=== PATIENT | female | born 1935 | race Caucasian/White ===

== ENCOUNTER 2016-10-30 16:40 | Observation (INO) ==
--- NOTE | 2016-10-30 17:49 | Emergency Department Note ---
Disposition Clinical Impression: Frequent falls Scapular fracture Qualifiers: Encounter type: initial encounter Scapula location: other part of scapula Fracture type: closed Laterality: right Qualified Code(s): S42.191A - Fracture of other part of scapula, right shoulder, initial encounter for closed fracture UTI (urinary tract infection) Qualifiers: Urinary tract infection type: site unspecified Hematuria presence: without hematuria Qualified Code(s): N39.0 - Urinary tract infection, site not specified Disposition: Admitted As Inpatient Condition: Good General Adult HPI - General Chief complaint: ED Fall Stated complaint: Son wants pt evaluated for ECF placement, s/p fall Source: patient, family Mode of arrival: private vehicle Limitations: no limitations Nursing Notes Reviewed: Yes Vital Signs Reviewed: Yes - History of Present Illness HPI Narrative: Patient presents to the ED with complaint of multiple falls recently, generalized weakness and a desire for ECF placement. Patient's son states that she tripped and fell on October 23. She was seen on the at urgent care and diagnosed with a right scapula fracture and placed in a sling and swath. Since then she has continued to try to ambulate with her cane but has been having increased difficulty. On October 27 she fell out of bed and has since been complaining of persistent right scapular pain. She was referred by urgent care to orthopedics for follow-up but has not yet been seen. She has a history of dementia and seizure disorder but has not had any recent seizures. She alternates living with her son and her daughter for 30 days at a time. Son states she is progressively needing more assistance that he and his sister cannot provide to ensure the patient's safety. Patient agrees that she needs more assistance as well. Pain Scale: 9 - Related Data Home Medications Medication Instructions Recorded Confirmed Alendronate Sodium [Fosamax] 70 mg PO QWEEK 10/26/16 10/30/16 Aspirin [Lo-Dose Aspirin EC] 81 mg PO DAILY 10/26/16 10/30/16 Cholecalciferol (Vitamin D3) 5,000 unit PO DAILY 10/26/16 10/30/16 [Vitamin D] Duoxetine 60 mg PO HS 10/26/16 10/30/16 Ferrous Gluconate 324 mg PO DAILY 10/26/16 10/30/16 Gabapentin [Neurontin] 300 mg PO BID 10/26/16 10/30/16 Glucosamine HCl/Chondr Negron A Na 1 tab PO BID 10/26/16 10/30/16 [[facility] Glucosamine-Chondr Tablet] Memantine [Namenda] 10 mg PO BID 10/26/16 10/30/16 Oxybutynin [Ditropan] 5 mg PO DAILY 10/26/16 10/30/16 LevETIRAcetam [Keppra Xr] 500 mg PO BID 10/30/16 10/30/16 Previous Rx's Medication Instructions Recorded HYDROcodone/Acet 5/325 mg [[place] 1 tab PO Q6H PRN #8 tab 10/26/16 5-325 mg] Allergies Allergy/AdvReac Type Severity Reaction Status Date / Time No Known Allergies Allergy Verified 10/26/16 18:03 Constitutional: Denies: fever, chills, weakness, weight change Eyes: Denies: eye pain, eye discharge, vision change ENT ED: Denies: ear pain, throat pain, dental pain, hearing loss, epistaxis, congestion, dysphagia Cardiovascular: Denies: chest pain, palpitations, dyspnea on exertion, edema, syncope Respiratory: Denies: cough, dyspnea, wheezes, hemoptysis, stridor Gastrointestinal: Denies: abdominal pain, nausea, vomiting, diarrhea, constipation, hematemesis, melena, hematochezia Genitourinary: Denies: dysuria, frequency, hematuria, discharge Musculoskeletal: Reports: as per HPI. Denies: back pain, neck pain, arthralgia , myalgia Integumentary: Denies: rash, abrasion, lesions Neurological: Denies: headache, weakness, numbness, paresthesias, confusion, abnormal gait, vertigo Psychiatric: Denies: anxiety, depression, suicidal thoughts, homicidal thoughts , auditory hallucinations, visual hallucinations Endocrine: Denies: fatigue Hematological/Lymphatic: Denies: easy bleeding, easy bruising Allergic/Immunologic: Denies: facial swelling, urticaria Past Medical History - Past Medical History Medical history: Reports: dementia, other Surgical history: Reports: orthopedic, other Psychiatric history: Reports: depression - Social History Smoking Status: Never smoker Smokeless Tobacco Status: No Alcohol use: Reports: none Drug use: Reports: none Physical Exam - General Limitations: no limitations General appearance: alert, in no apparent distress - Head Head exam: atraumatic, normocephalic, normal inspection - Eye Eye exam: Present: normal appearance, PERRL, EOMI - ENT ENT exam: normal exam, normal oropharynx, mucous membranes moist - Neck Neck exam: Present: normal inspection, full ROM, trachea midline - Chest Chest inspection: Present: normal inspection, symmetric chest wall rise - Respiratory Respiratory exam: Present: normal lung sounds bilaterally - Cardiovascular Cardiovascular exam: Present: regular rate, normal rhythm, normal heart sounds - Abdominal Exam Abdominal exam: Present: soft, Non-Tender. Absent: tenderness, distention, guarding, rebound, rigidity - Extremities Exam Extremities exam: Present: normal inspection, full ROM. Absent: tenderness, pedal edema - Back Exam Back exam: Present: normal inspection. Absent: tenderness, CVA tenderness (R), CVA tenderness (L) - Neurological Exam Neurological exam: Present: alert - Expanded Neurological Exam Patient oriented to: Present: person, place - Psychiatric Psychiatric exam: Present: normal affect, normal mood - Skin Skin exam: Present: warm, dry, intact, normal color Course Course Narrative: Patient presents to the ED with frequent falls, generalized weakness and recent scapular fracture. Patient family were seen by social media specialist while awaiting evaluation in the ED discussed possibilities of ECF placement. Labs were performed which revealed a UTI. Scapular x-ray does show a slightly displaced fracture. Patient was medicated for pain. Given patient's declining condition and history of dementia with frequent falls I that she would benefit from admission and further evaluation to determine what services she requires. Spoke to the hospitalist on-call, Dr. Dickinson, who has accepted the patient. Patient is hemodynamically stable currently. Laboratory studies are unremarkable other than UTI and thrombocytopenia which is chronic. Vital Signs Temperature 98.3 F 10/30/16 16:42 Pulse Rate 78 10/30/16 16:42 Respiratory Rate 24 10/30/16 16:42 Blood Pressure 101/71 10/30/16 16:42 O2 Sat by Pulse Oximetry 94 10/30/16 16:42 Temperature 97.7 F 10/31/16 04:18 Pulse Rate 74 10/31/16 04:18 Respiratory Rate 18 10/31/16 04:18 Blood Pressure 110/71 10/31/16 04:18 O2 Sat by Pulse Oximetry 92 10/31/16 04:18 Oxygen Delivery Oxygen Delivery Room Air Medical Decision Making - Medical Records Medical records reviewed: Yes I reviewed the patient's medical records. - Lab Data Lab results reviewed: Yes I reviewed the patient's lab results. Result diagrams: 10/30/16 18:18 10/30/16 18:18 Lab Results 10/30/16 10/30/16 10/30/16 Range/Units 18:18 18:18 19:08 WBC 6.4 (4.3-11.1) K/mcL RBC 3.96 (3.82-4.97) M/mcL Hgb 12.8 (11.5-15.4) g/dL Hct 38.1 (35.3-44.9) % MCV 96.2 (83.0-100.0) fL MCH 32.3 (28.0-33.3) pg MCHC 33.6 (31.6-35.5) g/dL RDW 12.8 (11.5-14.5) % Plt Count 129 L (140-400) K/mcL MPV 11.2 (9.4-12.4) fL Seg Neutrophils % 34.0 % Band Neutrophils % 2.0 (0-4) % Lymphocytes % 58.0 % Monocytes % 2.0 % Eosinophils % 4.0 % Neutrophils # 2.3 (1.6-8.9) K/mcL Lymphocytes # 3.7 (0.6-4.6) K/mcL Monocytes # 0.1 (0.0-1.3) K/mcL Eosinophils # 0.3 (0.0-0.6) K/mcL Reactive Lymphocytes Present A (Not Present) Platelet Estimate Slight Decrease L (Normal) Sodium 142 (136-145) mEq/L Potassium 3.7 (3.5-4.5) mEq/L Chloride 107 (98-109) mEq/L Carbon Dioxide 19 (19-29) mEq/L BUN 20 (7-20) mg/dL Creatinine 0.85 (0.57-1.11) mg/dL Est GFR ( Amer) > 60 (> 60) Est GFR (Non-Af Amer) > 60 (> 60) BUN/Creatinine Ratio 24 (6-26) Glucose 108 H (70-99) mg/dL Calculated Osmolality 297 (280-300) Calcium 8.8 (8.6-10.8) mg/dL Urine Color Yellow (Yellow) Urine Clarity Slightly Cloudy A (Clear) Urine pH 5.5 (5.0-8.0) pH Units Ur Specific [place] 1.025 (1.010-1.025) Urine Protein 100 H (Neg-Trace) mg/dL Urine Glucose (UA) Normal (Normal) mg/dL Urine Ketones Trace H (Negative) mg/dL Urine Blood Negative (Negative) Urine Nitrite Negative (Negative) Urine Bilirubin Negative (Negative) Urine Urobilinogen Normal (Normal) mg/dL Ur Leukocyte Esterase Trace H (Negative) Urine Microscopic RBC 0-3 (0-3) per hpf Urine Microscopic WBC 5-15 H (0-3) per hpf Ur Squamous Epith Cells Many H (None-Few) per lpf Urine Bacteria Moderate H (None-Few) per hpf Hyaline Casts Few (None-Few) per lpf Granular Casts Few H (None Seen) per lpf Urine Mucus Moderate H (Few) Ur Culture Indicated? YES A (NO) - Radiology Data Radiology results reviewed: Yes I reviewed the patient's radiology results. ITS Impressions Scapula X-Ray 10/30/16 18:05 IMPRESSION: 1. Acute traumatic displaced superior scapular fracture. D/ / Eric Riggs MD / Eric Riggs MD Interpreting Provider: Eric Riggs MD
[2016-10-30 18:24] LABS: Eosinophils # 0.3 K/mcL (0.0-0.6); Hematocrit 38.1 % (35.3-44.9); Hemoglobin 12.8 g/dL (11.5-15.4); Mean Corpuscular HGB Conc 33.6 g/dL (31.6-35.5); Mean Corpuscular Hemoglobin 32.3 pg (28.0-33.3); Mean Corpuscular Volume 96.2 fL (83.0-100.0); Mean Platelet Volume 11.2 fL (9.4-12.4); Platelet Count 129 K/mcL (140-400); Red Blood Count 3.96 M/mcL (3.82-4.97); Red Cell Distribution Width 12.8 % (11.5-14.5)
[2016-10-30 18:44] LABS: Lymphocytes # 3.7 K/mcL (0.6-4.6); Monocytes # 0.1 K/mcL (0.0-1.3); Neutrophils # 2.3 K/mcL (1.6-8.9)
[2016-10-30 18:56] LABS: Reactive Lymphocytes Present (Not Present)
[2016-10-30 18:57] LABS: Platelet Estimate Slight Decrease (Normal)
[2016-10-30 19:09] LABS: BUN/Creatinine Ratio 24 (6-26); Blood Urea Nitrogen 20 mg/dL (7-20); Calcium 8.8 mg/dL (8.6-10.8); Carbon Dioxide 19 mEq/L (19-29); Chloride 107 mEq/L (98-109); Glucose 108 mg/dL (70-99); Osmolality,Calculated 297 (280-300); Potassium 3.7 mEq/L (3.5-4.5); Sodium 142 mEq/L (136-145); eGFR For African Americans > 60 (> 60); eGFR For Non-African Americans > 60 (> 60)
[2016-10-30 19:34] LABS: Bilirubin,Urine Negative (Negative); Blood,Urine Negative (Negative); Clarity,Urine Slightly Cloudy (Clear); Color,Urine Yellow (Yellow); Glucose,Urine (UA) Normal (Normal); Ketones,Urine Trace mg/dL (Negative); Leukocyte Esterase,Urine Trace (Negative); Nitrite,Urine Negative (Negative); PH,Urine 5.5 pH Units (5.0-8.0); Protein,Urine 100 mg/dL (Neg-Trace); Specific Gravity,Urine 1.025 (1.010-1.025); Urobilinogen,Urine Normal (Normal)
[2016-10-30 19:42] LABS: Granular Casts,Urine Few per lpf (None Seen); Mucus,Urine Moderate (Few); Squamous Epithelial Cell,Urine Many per lpf (None-Few)
[2016-10-30 19:43] LABS: Bacteria,Urine Moderate per hpf (None-Few); Hyaline Casts,Urine Few per lpf (None-Few)
[2016-10-30 19:44] LABS: RBC,Urine 0-3 per hpf (0-3)
[2016-10-30] MEDS ORDERED: Nitrofurantoin (BID) 100 MG CAPSULE PO STA (19:48)
[2016-10-30] MEDS ORDERED: Naloxone 0.4 MG/ML INJ IVP PRN ×2 (20:27→21:17)
[2016-10-30] MEDS ORDERED: Acetaminophen 325 MG TABLET PO PRN (20:27)
[2016-10-30] MEDS: *HR* HYDROcodone/Acet 5/325 mg TABLET PO PRN (22:52)
[2016-10-30] MEDS: levETIRAcetam 250 MG TABLET PO SCH (22:54)
[2016-10-30] MEDS: [UNRECOGNIZED DRUG - OTHER] PO SCH (22:57)
[2016-10-30] MEDS: Gabapentin 300 MG CAPSULE PO SCH (22:59)
[2016-10-31] MEDS: *HR* HYDROcodone/Acet 5/325 mg TABLET PO PRN (05:01)
[2016-10-31] MEDS: [UNRECOGNIZED DRUG - OTHER] PO SCH (08:08)
[2016-10-31] MEDS: Gabapentin 300 MG CAPSULE PO SCH ×2 (08:54→21:12)
[2016-10-31] MEDS: Aspirin Enteric Coated 81 MG Tablet PO SCH (08:54)
[2016-10-31] MEDS: levETIRAcetam 250 MG TABLET PO SCH ×3 (08:54→21:10)
[2016-10-31] MEDS: Cholecalciferol (D-3) 1,000 UNIT TABLET PO SCH (08:54)
--- NOTE | 2016-10-31 12:07 | Internal Med History&Physical ---
Date of Encounter: 10/31/16 Time of Encounter: 11:30 Assessment and Plan (1) Scapular fracture Current visit: Yes Status: Acute A shoulder CT will be done as per recommendation of the orthopedist. She will have a follow-up appointment this afternoon with [facility] orthopedists. Qualifiers: Encounter type: initial encounter Scapula location: other part of scapula Fracture type: closed Laterality: right Qualified Code(s): S42.191A - Fracture of other part of scapula, right shoulder, initial encounter for closed fracture (2) Dementia Current visit: Yes Status: Chronic We will do a head CT and lab work for further workup. Qualifiers: Dementia type: unspecified type Dementia behavioral disturbance: without behavioral disturbance Qualified Code(s): F03.90 - Unspecified dementia without behavioral disturbance (3) Gout Current visit: Yes Status: Chronic We will order uric acid and other labs in a.m. Qualifiers: Gout site: unspecified site Gout etiology: unspecified cause Chronicity: chronic Presence of tophus: without tophus Qualified Code(s): M1A.9XX0 - Chronic gout, unspecified, without tophus (tophi) (4) Seizures Current visit: Yes Status: Chronic Type unknown. We will continue Keppra and Neurontin at present doses. We will do a head CT as per above (5) Frequent falls Current visit: Yes Status: Acute PT and OT evaluations have been ordered. Internal Medicine - H&P: HPI Chief complaint: Confusion Admitted From: Home Plans for Post Hospital Care: Home History of present illness: Ms. Miller is a 80 year old female who was brought to the emergency room by family after she had sustained several falls recently. She was seen at [place] urgent care 10/26/2016 after a fall and x-ray showed right scapular fracture. She was placed in an immobilizer sling and told to follow-up with an orthopedist but has not had a follow-up visit yet. She was evaluated in emergency room and found to have slightly more displacement of the right scapular fracture. She was admitted to [facility] floor for ongoing care needs. She is a fair to poor historian. She has a diagnosis of dementia and she admits her memory is impaired. She does not know her age, location, or recent for coming to the hospital. Past Med Surg Social Fam HX - Past Medical History Medical history: dementia, other Psychiatric history: depression - Past Surgical History Surgical History: orthopedic, other - Social History Smoking Status: Never smoker Smokeless Tobacco Status: No Alcohol use: none Drug use: none - Family History Father Living Status: Hx Family Cancer: Yes (MELANOMA) Internal Medicine - H&P: Meds Alendronate Sodium [Fosamax] 70 mg PO QWEEK 10/26/16 [History] Aspirin [Lo-Dose Aspirin EC] 81 mg PO DAILY 10/26/16 [History] Cholecalciferol (Vitamin D3) [Vitamin D] 5,000 unit PO DAILY 10/26/16 [History] Duoxetine 60 mg PO HS 10/26/16 [History] Ferrous Gluconate 324 mg PO DAILY 10/26/16 [History] Gabapentin [Neurontin] 300 mg PO BID 10/26/16 [History] Glucosamine HCl/Chondr Negron A Na [[facility]vs Glucosamine-Chondr Tablet] 1 tab PO BID [History] HYDROcodone/Acet 5/325 mg [[place] 5-325 mg] 1 tab PO Q6H PRN #8 tab 10/26/16 [Rx] Memantine [Namenda] 10 mg PO BID 10/26/16 [History] Oxybutynin [Ditropan] 5 mg PO DAILY 10/26/16 [History] LevETIRAcetam [Keppra Xr] 500 mg PO BID 10/30/16 [History] Allergies No Known Allergies Allergy (Verified 10/26/16 18:03) All Systems PM: A 10-system review of systems was performed and is negative for pertinent findings except as documented above in the HPI. Review of systems: Gen.: She states her weight has been stable past few months Cardiovascular: She denies NM hypertension heart failure angina DVT or pulmonary embolus Respiratory: She states she smoked from age [age] up to 2/3 pack daily. She states she does not use home oxygen and has not been told she has chronic lung disease. GI: She denies disorders of her liver gallbladder or exocrine pancreas : She denies hematuria dysuria or kidney stones Neurologic: She has a diagnosis of seizure disorder but does not know details. She states she had a light stroke 6 months ago but does not know of any sequelae. She admits to memory loss and has a diagnosis of dementia and is on Namenda. She states she had a near syncopal episode several months ago but denies any recurrence. 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 She had recent scapular fracture as per history of present illness. She denies other bone joint or muscle disorders. - Constitutional Vitals: Temp Pulse Resp BP Pulse Ox 97.9 F 101 20 103/60 95 10/31/16 10:58 10/31/16 10:58 10/31/16 10:58 10/31/16 10:58 10/31/16 10:58 Exam: Gen.: She is a well-developed well-nourished female sitting in a chair who appears in no distress at rest HEENT: Head is atraumatic and normocephalic. Eyes: EOMI. There is no scleral icterus. Mouth: Mucosa is moist. Neck: Supple and nontender. There is no thyromegaly or adenopathy noted. Heart: Regular without murmurs gallops or ectopics Lungs: No wheezes or crackles are heard. Abdomen: Soft and nontender. Exam is limited because she is in the seated position. Extremities: There is no cyanosis edema or clubbing noted. She has DJD changes her hands. 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 Neurologic: Mental status: She is talkative but a fair historian at best. Cranial nerves: Smile is symmetric. Forehead wrinkles bilaterally. Tongue protrudes midline. EOMI. Motor: There is no pronator drift. There is no cogwheeling or rigidity. Cerebellar: Finger to nose is intact bilaterally. Skin: Warm and dry Internal Med - H&P Results - Labs CBC & Chem 7: 10/30/16 18:18 10/30/16 18:18 - VTE Reasons for not Prescribing Prophylaxis: Treatment not Indicated - Low risk for VTE
[2016-10-31] MEDS: Acetaminophen 325 MG TABLET PO PRN (21:12)
[2016-11-01] MEDS: [UNRECOGNIZED DRUG - OTHER] PO SCH ×3 (05:35→21:01)
[2016-11-01 06:22] LABS: Alanine Aminotransferase 34 Units/L (0-55); Albumin 3.1 g/dL (3.5-5.0); Alkaline Phosphatase 62 Units/L (38-126); Aspartate Amino Transferase 36 Units/L (5-34); BUN/Creatinine Ratio 21 (6-26); Bilirubin,Total 0.5 mg/dL (0.2-1.2); Blood Urea Nitrogen 16 mg/dL (7-20); Calcium 8.5 mg/dL (8.6-10.8); Carbon Dioxide 26 mEq/L (19-29); Chloride 107 mEq/L (98-109); Glucose 89 mg/dL (70-99); Osmolality,Calculated 295 (280-300); Potassium 3.8 mEq/L (3.5-4.5); Sodium 142 mEq/L (136-145); Total Protein 6.1 g/dL (6.0-8.3); Uric Acid 6.4 mg/dL (2.6-6.0); eGFR For African Americans > 60 (> 60); eGFR For Non-African Americans > 60 (> 60)
[2016-11-01 06:44] LABS: Thyroid Stimulating Hormone 0.983 mcIU/mL (0.350-4.840)
[2016-11-01] MEDS: Aspirin Enteric Coated 81 MG Tablet PO SCH (07:29)
[2016-11-01] MEDS: Cholecalciferol (D-3) 1,000 UNIT TABLET PO SCH (07:29)
[2016-11-01] MEDS: levETIRAcetam 250 MG TABLET PO SCH ×2 (07:30→21:00)
[2016-11-01] MEDS: Gabapentin 300 MG CAPSULE PO SCH ×2 (07:30→21:01)
[2016-11-01] MEDS: *HR* HYDROcodone/Acet 5/325 mg TABLET PO PRN (15:31)
--- NOTE | 2016-11-01 17:54 | Internal Med Progress Note ---
Date of Encounter: 11/01/16 Time of Encounter: 17:45 - Assessment and plan (1) Scapular fracture Current Visit: Yes Status: Acute Assessment and plan: November 01. As per orthopedists. Qualifiers: Encounter type: initial encounter Scapula location: other part of scapula Fracture type: closed Laterality: right Qualified Code(s): S42.191A - Fracture of other part of scapula, right shoulder, initial encounter for closed fracture (2) Dementia Current Visit: Yes Status: Chronic Assessment and plan: November 01. Head CT showed chronic small vessel ischemic changes as well as multiple lacunar infarcts. B12 and TSH levels were normal. Qualifiers: Dementia type: unspecified type Dementia behavioral disturbance: without behavioral disturbance Qualified Code(s): F03.90 - Unspecified dementia without behavioral disturbance (3) Gout Current Visit: Yes Status: Chronic Assessment and plan: November 01. Uric acid level returned slightly elevated at 6.4. I will start low- dose allopurinol. Qualifiers: Gout site: unspecified site Gout etiology: unspecified cause Chronicity: chronic Presence of tophus: without tophus Qualified Code(s): M1A.9XX0 - Chronic gout, unspecified, without tophus (tophi) (4) Seizures Current Visit: Yes Status: Chronic Assessment and plan: November 01. Continue Keppra and Neurontin. (5) Frequent falls Current Visit: Yes Status: Acute Assessment and plan: November 01. Continue therapy interventions. Anticipate discharge to [facility] November 03 - Subjective Interval history: November 01. She has no new complaints. She was seen by orthopedist yesterday and received a new right arm immobilizer sling. - Constitutional Vitals: Temp Pulse Resp BP Pulse Ox 98.7 F 76 16 96/69 96 11/01/16 14:51 11/01/16 14:51 11/01/16 14:51 11/01/16 14:51 11/01/16 14:51 Exam: She is resting comfortably in bed and appears in no acute distress. Her affect is bright and cheerful. I reviewed her medications and lab results. Internal Medicine: Result - Labs CBC & Chem 7: 10/30/16 18:18 11/01/16 05:28 Labs: BMP 11/01/16 05:28 Sodium 142 Potassium 3.8 Chloride 107 Carbon Dioxide 26 BUN 16 Creatinine 0.75 Glucose 89 Calcium 8.5 L Liver Function 11/01/16 Range/Units 05:28 Total Bilirubin 0.5 (0.2-1.2) mg/dL AST 36 H (5-34) Units/L ALT 34 (0-55) Units/L Alkaline Phosphatase 62 (38-126) Units/L Albumin 3.1 L (3.5-5.0) g/dL - Impressions Impressions Head CT 10/31/16 12:15 IMPRESSION: No acute intracranial abnormality. Generalized cerebral atrophy. Bilateral lacunar infarcts and deep white matter infarcts. Remote infarct in the right occipital lobe. Small vessel white matter ischemic changes. D/ / 10/31/2016 14:22:37 Fran Raymond MD / lizbeth Interpreting Provider: Fran Raymond MD Shoulder CT 10/31/16 12:15 IMPRESSION: Acute traumatic mildly displaced fracture of the scapula at the base of the acromion process. Associated grade 2 AC joint separation with possible small cortical avulsion fracture fragment measuring 3 mm within the AC joint. Reversed right total shoulder arthroplasty with normal alignment. No evidence of loosening of the hardware. D/ / 10/31/2016 14:30:38 Ajit Ruiz MD / lizbeth Interpreting Provider: Ajit Ruiz MD - VTE Reasons for not Prescribing Prophylaxis: Treatment not Indicated - Low risk for VTE Consult Discharge Plan - Plan Referrals: Zaida Chávez [Other] - 1 week
[2016-11-02] MEDS: Cholecalciferol (D-3) 1,000 UNIT TABLET PO SCH (08:11)
[2016-11-02] MEDS: Gabapentin 300 MG CAPSULE PO SCH ×2 (08:11→19:32)
[2016-11-02] MEDS: Aspirin Enteric Coated 81 MG Tablet PO SCH (08:12)
[2016-11-02] MEDS: levETIRAcetam 250 MG TABLET PO SCH ×2 (08:12→19:32)
[2016-11-02] MEDS: *HR* HYDROcodone/Acet 5/325 mg TABLET PO PRN ×2 (08:16→22:57)
[2016-11-02] MEDS: [UNRECOGNIZED DRUG - OTHER] PO SCH ×2 (10:09→19:34)
--- NOTE | 2016-11-02 12:34 | Internal Med Progress Note ---
Date of Encounter: 11/02/16 Time of Encounter: 12:20 - Assessment and plan (1) Scapular fracture Current Visit: Yes Status: Acute Assessment and plan: November 01. As per orthopedists. Qualifiers: Encounter type: initial encounter Scapula location: other part of scapula Fracture type: closed Laterality: right Qualified Code(s): S42.191A - Fracture of other part of scapula, right shoulder, initial encounter for closed fracture (2) Dementia Current Visit: Yes Status: Chronic Assessment and plan: November 01. Head CT showed chronic small vessel ischemic changes as well as multiple lacunar infarcts. B12 and TSH levels were normal. Qualifiers: Dementia type: unspecified type Dementia behavioral disturbance: without behavioral disturbance Qualified Code(s): F03.90 - Unspecified dementia without behavioral disturbance (3) Gout Current Visit: Yes Status: Chronic Assessment and plan: November 01. Uric acid level returned slightly elevated at 6.4. I will start low- dose allopurinol. November 02. Continue allopurinol. Qualifiers: Gout site: unspecified site Gout etiology: unspecified cause Chronicity: chronic Presence of tophus: without tophus Qualified Code(s): M1A.9XX0 - Chronic gout, unspecified, without tophus (tophi) (4) Seizures Current Visit: Yes Status: Chronic Assessment and plan: November 01. Continue Keppra and Neurontin. (5) Frequent falls Current Visit: Yes Status: Acute Assessment and plan: November 01. Continue therapy interventions. Anticipate discharge to [facility] November 03 - Subjective Interval history: November 01. She has no new complaints. She was seen by orthopedist yesterday and received a new right arm immobilizer sling. November 02. She has no new complaints. - Constitutional Vitals: Temp Pulse Resp BP Pulse Ox 98.8 F 79 16 101/61 92 11/02/16 11:37 11/02/16 11:37 11/02/16 11:37 11/02/16 11:37 11/02/16 11:37 Exam: She is resting comfortably in bed. Affect is bright and cheerful. I reviewed her medications and lab results. Internal Medicine: Result - Labs CBC & Chem 7: 10/30/16 18:18 11/01/16 05:28 - VTE Reasons for not Prescribing Prophylaxis: Treatment not Indicated - Low risk for VTE Consult Discharge Plan - Plan Referrals: Zaida Chávez [Other] - 1 week
[2016-11-03] MEDS: Acetaminophen 325 MG TABLET PO PRN ×2 (01:08→07:54)
[2016-11-03] MEDS: Gabapentin 300 MG CAPSULE PO SCH (07:54)
[2016-11-03] MEDS: Cholecalciferol (D-3) 1,000 UNIT TABLET PO SCH (07:54)
[2016-11-03] MEDS: Aspirin Enteric Coated 81 MG Tablet PO SCH (07:54)
[2016-11-03] MEDS: levETIRAcetam 250 MG TABLET PO SCH (07:55)
--- NOTE | 2016-11-03 12:38 | Discharge Summary ---
Date of Encounter: 11/03/16 Time of Encounter: 12:30 - Discharge Diagnosis (1) Scapular fracture Priority: Primary Status: Acute Qualifiers: Encounter type: initial encounter Scapula location: other part of scapula Fracture type: closed Laterality: right Qualified Code(s): S42.191A - Fracture of other part of scapula, right shoulder, initial encounter for closed fracture (2) Dementia Priority: Secondary Status: Chronic Qualifiers: Dementia type: unspecified type Dementia behavioral disturbance: without behavioral disturbance Qualified Code(s): F03.90 - Unspecified dementia without behavioral disturbance (3) Gout Priority: Secondary Status: Chronic Qualifiers: Gout site: unspecified site Gout etiology: unspecified cause Chronicity: chronic Presence of tophus: without tophus Qualified Code(s): M1A.9XX0 - Chronic gout, unspecified, without tophus (tophi) (4) Seizures Priority: Secondary Status: Chronic (5) Frequent falls Priority: Secondary Status: Acute - Discharge Medications Prescriptions: HYDROcodone/Acet 5/325 mg [Monroe 5-325 mg] 1 tab PO Q6H PRN #20 tablet PRN Reason: Pain Home Medications: Alendronate Sodium [Fosamax] 70 mg PO QWEEK 10/26/16 [History] Aspirin [Lo-Dose Aspirin EC] 81 mg PO DAILY 10/26/16 [History] Duoxetine 60 mg PO HS 10/26/16 [History] Gabapentin [Neurontin] 300 mg PO BID 10/26/16 [History] Glucosamine HCl/Chondr Negron A Na [[facility] Glucosamine-Chondr Tablet] 1 tab PO BID [History] Memantine [Namenda] 10 mg PO BID 10/26/16 [History] Oxybutynin [Ditropan] 5 mg PO DAILY 10/26/16 [History] LevETIRAcetam [Keppra Xr] 500 mg PO BID 10/30/16 [History] Allopurinol [Zyloprim 100 MG] 100 mg PO DAILY tablet 11/03/16 [Rx] Cholecalciferol (D-3) [Vitamin D] 1,000 unit PO DAILY tablet 11/03/16 [Rx] HYDROcodone/Acet 5/325 mg [Monroe 5-325 mg] 1 tab PO Q6H PRN #20 tablet 11/03/16 [Rx] Allergies/Adverse Reactions: Allergies No Known Allergies Allergy (Verified 10/26/16 18:03) Procedures/tests Complete & Pending: Procedures Performed prior 72 hours Category Date Time Status CT head/brain wo con [CT] Stat Cat Scan 10/31/16 12:[address] shoulder RT wo con [CT] Stat Cat Scan 10/31/16 12:15 Completed Date of admission: 10/30/16 20:39 Primary care physician: Zaida Chávez Consults: 10/30/16 21:35 Consult to Occupational Therapy [CONS] Routine Comment: Evaluate, develop and implement POC Reason for Consult: Eval. Develop and Implement P.O.C if P.O.C. is needed Consult to Physical Therapy [CONS] Routine Comment: Evaluate, develop and implement POC Reason for Consult: Eval. Develop and Implement P.O.C if P.O.C. is needed Consult to [facility] [CONS] Routine Reason for SW Consult: D/C planning 10/30/16 22:37 Consult to Pastoral Services [CONS] Routine Comment: - Patient Status Disposition: Transfer SNF Condition: Good Functional capacity at discharge: uses cane/walker Overall status at discharge: patient is progressing back to baseline - Discharge Instructions Follow Up With: Zaida Chávez [Other] - 1 week - Diet and Activity Activity: as per physical therapy Diet: advance to your usual diet Hospital course: Ms. Miller is a 81 year old female who was brought to the emergency room by family after she had sustained several falls recently. She was seen at [facility] 10/26/2016 after a fall and x-ray showed right scapular fracture. She was placed in an immobilizer sling and told to follow-up with an orthopedist but has not had a follow-up visit yet. She was evaluated in emergency room and found to have slightly more displacement of the right scapular fracture. She was admitted to [facility] for ongoing care needs. The initial orders written by the emergency room physician. I saw her on October 31 and performed the history and physical. She was referred to an orthopedist for further evaluation of the right scapular fracture. A shoulder CT was done. She was treated nonoperatively and placed in an immobilizer sling by the orthopedist. She was given adequate analgesics. She will follow up with orthopedist as directed. Dementia workup showed no reversible etiologies with normal B12 at 383 and TSH of 0.983. She will continue Namenda. Uric acid level returned slightly elevated at 6.4. She was started on low-dose allopurinol and this will be continued at discharge. Social service consult was made and family chose to have her placed in [facility] for ongoing care needs. - Time Spent with Patient Total time spent providing and/or coordinating discharge services: - Constitutional Vitals: Temp Pulse Resp BP Pulse Ox 98.2 F 76 16 102/69 94 11/03/16 07:09 11/03/16 08:11 11/03/16 08:11 11/03/16 08:11 11/03/16 08:11 - VTE Reasons for not Prescribing Prophylaxis: Treatment not Indicated - Low risk for VTE
--- NOTE | 2016-11-03 12:43 | Physician Discharge Referral ---
ExtendedCare Referral Info Transfer To: [facility] Provider in Charge: Alok Provider in Charge after Transfer: PCP - Diagnosis (1) Scapular fracture Priority: Primary Status: Acute (2) Dementia Priority: Secondary Status: Chronic (3) Gout Priority: Secondary Status: Chronic (4) Seizures Priority: Secondary Status: Chronic (5) Frequent falls Priority: Secondary Status: Acute Prognosis: Fair Aware of Diagnosis: Patient, Family Aware of Prognosis: Patient, Family - Transfer Medications Prescriptions: HYDROcodone/Acet 5/325 mg [Branson 5-325 mg] 1 tab PO Q6H PRN #20 tablet PRN Reason: Pain Home Medications: Alendronate Sodium [Fosamax] 70 mg PO QWEEK 10/26/16 [History] Aspirin [Lo-Dose Aspirin EC] 81 mg PO DAILY 10/26/16 [History] Duoxetine 60 mg PO HS 10/26/16 [History] Gabapentin [Neurontin] 300 mg PO BID 10/26/16 [History] Glucosamine HCl/Chondr Negron A Na [[facility]vs Glucosamine-Chondr Tablet] 1 tab PO BID [History] Memantine [Namenda] 10 mg PO BID 10/26/16 [History] Oxybutynin [Ditropan] 5 mg PO DAILY 10/26/16 [History] LevETIRAcetam [Keppra Xr] 500 mg PO BID 10/30/16 [History] Allopurinol [Zyloprim 100 MG] 100 mg PO DAILY tablet 11/03/16 [Rx] Cholecalciferol (D-3) [Vitamin D] 1,000 unit PO DAILY tablet 11/03/16 [Rx] HYDROcodone/Acet 5/325 mg [Branson 5-325 mg] 1 tab PO Q6H PRN #20 tablet 11/03/16 [Rx] Allergies/Adverse Reactions: Allergies No Known Allergies Allergy (Verified 10/26/16 18:03) - Respiratory Orders Smoking Cessation: Smoking cessation has been advised. For more information, call the [employer] Tobacco Quit Line at 9-895-EOGI-NOW. - Mobility Orders Ambulate - Rehabiliation Orders Rehab Potential: Fair Rehab Orders: Evaluation for Physical Therapy, Evaluation for Occupational Therapy - Diet Orders Regular CERTIFICATION: I certify that the transfer of the above named patient to an Extended Care Facility is necessary for the continuing treatment of the diagnosis listed. The above information is true and accurate reflection of patient's current condition. Confidential - Redisclosure prohibited without a patient's written consent.
[2016-11-03 13:40] VITALS: BP 90/60
== END 2016-11-03 14:30 ==
LOC: INPPIK 16:40 → EMEROOPIK 16:40 → INPPIK 21:00
PROVIDERS: ADMIT Internal Medicine; ATTEND Internal Medicine